=== PATIENT | male | born 1960 | race African-American/Black ===

== ENCOUNTER 2019-11-04 23:46 | Emergency (ER) | payer MEDICAID ==
[~2019-11-04] VITALS: Ht 175.3 cm; Wt 81.8 kg
[2019-11-05] VITALS: BP 149/85
--- NOTE | 2019-11-05 00:03 | PHYS DOC ---
Past History Past Medical History: Asthma Past Surgical History: No Surgical History Smoking: Cigarettes Alcohol Use: Occasionally Drug Use: None General Adult EDM: Chief Complaint: COUGH HPI: HPI: Patient is a 59 year old male who presents via EMS for evaluation of cough and congestion that have been progressing over 3 days. He notes that earlier today he started coughing up blood. When the paramedics arrived his initial O2 sat was 89% on room air. On oxygen it quickly improved to 96%. Vital signs are otherwise stable. Patient does have pain in his chest earlier tonight. He states that his cough is caused him to have decreased ability to sleep. Patient has been checked for COVID but those results are not known. Patient is a smoker. Patient was in mild to early moderate distress on arrival Review of Systems: Review of Systems: Constitutional: Denies fever has chills Eyes: Denies change in visual acuity HENT: has nasal congestion and sore throat Respiratory: has cough and shortness of breath Cardiovascular: has chest pain no edema GI: Denies abdominal pain, nausea, vomiting, bloody stools or diarrhea : Denies dysuria Musculoskeletal: Denies back pain or joint pain Integument: Denies rash Neurologic: Denies headache, focal weakness or sensory changes Endocrine: Denies polyuria or polydipsia Lymphatic: Denies swollen glands Psychiatric: Denies depression or anxiety Heart Score: HEART Score for Chest Pain: HEART Score for Chest Pain Response (Comments) Value History Slighlty/Non-Suspicious 0 ECG Normal 0 Age >45 - < 65 1 Risk Factors 1 or 2 Risk Factors 1 Troponin < Normal Limit 0 Total 2 Risk Factors: Risk Factors: DM, Current or recent (<one month) smoker, HTN, HLP, family history of CAD, obesity. Risk Scores: Score 0 - 3: 2.5% MACE over next 6 weeks - Discharge Home Score 4 - 6: 20.3% MACE over next 6 weeks - Admit for Clinical Observation Score 7 - 10: 72.7% MACE over next 6 weeks - Early Invasive Strategies Current Medications: Current Meds: Current Medications Medications (Trade) Dose Ordered Sig/Agustín Start Time Stop Time Status Last Admin Dose Admin Albuterol Sulfate (Ventolin Hfa Inhaler) 2 puff 1X ONCE 11/05/19 00:30 11/05/19 00:31 Ceftriaxone Sodium 1 gm/ Sodium Chloride 50 ml @ 100 mls/hr 1X ONCE 11/05/19 00:30 11/05/19 00:59 Methylprednisolone Sodium Succinate (SOLU-Medrol 125MG VIAL) 125 mg 1X ONCE 11/05/19 00:30 11/05/19 00:31 Sodium Chloride 1,000 ml @ 1,000 mls/hr Q1H 11/05/19 00:30 11/05/19 01:29 Allergies: Allergies: Allergies Coded Allergies Type Severity Reaction Last Updated Verified Penicillins Allergy Unknown 11/05/19 Yes Physical Exam: PE: Constitutional: Well developed, well nourished, moderate acute distress. [] HENT: Normocephalic, atraumatic, bilateral external ears normal, oropharynx moist, no oral exudates, nose normal. [] Eyes: PERRL, EOMI, conjunctiva normal, no discharge. [] Neck: Normal range of motion, no tenderness, supple, no stridor. [] Cardiovascular:Heart rate regular rhythm, no murmur [] Lungs & Thorax: Bilateral breath sounds diminished especially the bases, rhonchi and wheezing present [] Abdomen: Bowel sounds normal, soft, no tenderness, no masses. [] Skin: Warm, dry, no erythema, no rash. [] Back: No tenderness. [] Extremities: No tenderness, no cyanosis, ROM intact, no edema. [] Neurologic: Alert and oriented, normal motor function, normal sensory function, no focal deficits noted. [] Psychologic: Affect normal, judgement normal, mood normal. [] Current Patient Data: Labs: Laboratory Tests Test 11/05/19 00:35 11/05/19 01:50 White Blood Count 7.1 x10^3/uL Red Blood Count 4.37 x10^6/uL Hemoglobin 13.1 g/dL Hematocrit 38.8 % Mean Corpuscular Volume 89 fL Mean Corpuscular Hemoglobin 30 pg Mean Corpuscular Hemoglobin Concent 34 g/dL Red Cell Distribution Width 13.7 % Platelet Count 221 x10^3/uL Neutrophils (%) (Auto) 64 % Lymphocytes (%) (Auto) 20 % Monocytes (%) (Auto) 15 % Eosinophils (%) (Auto) 1 % Basophils (%) (Auto) 1 % Neutrophils # (Auto) 4.5 x10^3uL Lymphocytes # (Auto) 1.4 x10^3/uL Monocytes # (Auto) 1.1 x10^3/uL Eosinophils # (Auto) 0.1 x10^3/uL Basophils # (Auto) 0.1 x10^3/uL Platelet Estimate Pending Sodium Level 134 mmol/L Potassium Level 3.9 mmol/L Chloride Level 98 mmol/L Carbon Dioxide Level 28 mmol/L Anion Gap 8 Blood Urea Nitrogen 16 mg/dL Creatinine 1.0 mg/dL Estimated GFR (Cockcroft-Gault) 76.5 BUN/Creatinine Ratio 16 Glucose Level 99 mg/dL Lactic Acid Level 1.0 mmol/L Calcium Level 9.1 mg/dL Total Bilirubin 1.2 mg/dL Aspartate Amino Transf (AST/SGOT) 37 U/L Alanine Aminotransferase (ALT/SGPT) 61 U/L Alkaline Phosphatase 78 U/L Troponin I Quantitative < 0.017 ng/mL QV-Dxc-H-Type Natriuretic Peptide 85 pg/mL Total Protein 8.0 g/dL Albumin 3.4 g/dL Albumin/Globulin Ratio 0.7 Urine Collection Type Unknown Urine Color Yellow Urine Clarity Clear Urine pH 6.0 Urine Specific [place] 1.015 Urine Protein Trace Urine Glucose (UA) Neg mg/dL Urine Ketones (Stick) Neg mg/dL Urine Blood Trace Urine Nitrite Neg Urine Bilirubin Neg Urine Urobilinogen Dipstick >=8.0 mg/dL Urine Leukocyte Esterase Neg Urine RBC Occ /HPF Urine WBC Occ /HPF Urine Squamous Epithelial Cells Few /LPF Urine Bacteria 0 /HPF Current Medications Medications (Trade) Dose Ordered Sig/Agustín Route PRN Reason Start Time Stop Time Status Last Admin Dose Admin Sodium Chloride 1,000 ml @ 1,000 mls/hr Q1H IV 11/05/19 00:30 11/05/19 01:29 DC 11/05/19 00:44 Methylprednisolone Sodium Succinate (SOLU-Medrol 125MG VIAL) 125 mg 1X ONCE IV 11/05/19 00:30 11/05/19 00:31 DC 11/05/19 00:44 Albuterol Sulfate (Ventolin Hfa Inhaler) 2 puff 1X ONCE INH 11/05/19 00:30 11/05/19 00:31 DC 11/05/19 00:30 Ceftriaxone Sodium 1 gm/ Sodium Chloride 50 ml @ 100 mls/hr 1X ONCE IV 11/05/19 00:30 11/05/19 00:59 DC 11/05/19 00:44 Sodium Chloride 50 ml @ As Directed STK-MED ONCE .ROUTE 11/05/19 00:39 11/05/19 00:40 DC Ceftriaxone Sodium (Rocephin) 1 gm STK-MED ONCE .ROUTE 11/05/19 00:40 11/05/19 00:40 DC Iohexol (Omnipaque 350 Mg/ml) 100 ml 1X ONCE IV 11/05/19 02:00 11/05/19 02:01 DC 11/05/19 01:50 Info (Do NOT chart on this entry -- for MONITORING) 1 each PRN DAILY PRN MC SEE COMMENTS 11/05/19 01:45 11/07/19 01:44 EKG: EKG: EKG normal sinus rhythm, rate 86, unremarkable EKG, not STEMI read at 12:03 AM [] Radiology/Procedures: Radiology/Procedures: [][address] [address] IMAGING REPORT Signed PATIENT: SINAI BURNS ACCOUNT: [id number] : 1960 LOCATION: ER AGE: 59 SEX: M EXAM STATUS: PRE ER ORD. PHYSICIAN: CHACORTA FIGUEROA DO REASON: coughing up blood, short of air PROCEDURE: PORTABLE CHEST 1V INDICATION: Reason: coughing up blood, short of air / Spl. Instructions: / History: COMPARISON: None. FINDINGS: Single view of chest obtained. Cardiac silhouette is unremarkable. Patchy opacities in the bilateral lungs most severe at the right greater than left lower lung. IMPRESSION: * Bilateral pulmonic opacities which could be infectious in nature with viral, atypical as well as bacterial infection within the differential. A component of aspiration or alveolar hemorrhage is also not excluded. Electronically signed by: Liat Silveira MD (11/05/2019 12:32 AM) [id number] DICTATED AND SIGNED BY: LIAT SILVEIRA MD DATE: 11/05/1931 CC: CHACORTA FIGUEROA DO ~ Impressions: [address] [address] IMAGING REPORT Signed PATIENT: SINAI BURNS ACCOUNT: [id number] : 1960 LOCATION: ER AGE: 59 SEX: M EXAM STATUS: REG ER ORD. PHYSICIAN: CHACORTA FIGUEROA DO REASON: OMNI 350,100ML IV.Pneumonia,coughing up blood,eval for PE.HX COPD PROCEDURE: CT ANGIOGRAPHY CHEST INDICATION: Reason: OMNI 350,100ML IV.Pneumonia,coughing up blood,eval for PE.HX COPD / Spl. Instructions: / History: COMPARISON: None. TECHNIQUE: Axial CT images obtained through the chest. Intravenous contrast utilized. Angiogram 3D images processed per protocol. One or more of the following individualized dose reduction techniques were utilized for this examination: 1. Automated exposure control; 2. Adjustment of the mA and/or kV according to patient size; 3. Use of iterative reconstruction technique. FINDINGS: There are some cystic changes in the lungs which could be from chronic lung disease. Multifocal opacities throughout the bilateral lungs with groundglass as well as nodular and masslike component most confluent in the right lung but seen bilaterally. There are some regions of bronchiectasis. Partially visualized liver is low density which can be seen with fatty infiltration. There are some scattered low-density lesions within the liver which are not well characterized on this nondedicated exam. Mediastinal and hilar lymphadenopathy. For example subcarinal region measuring 25 mm short axis. There is only a small amount contrast within the thoracic aorta therefore the lumen is not well evaluated. There is scattered calcific atherosclerosis without aneurysm. Portion of ascending thoracic aorta is obscured by motion. Angulation of some of the bilateral ribs which could be from prior injury. IMPRESSION: No embolus in the main, right main or left main pulmonary artery but peripheral vessels are obscured by motion and consolidation. Multifocal opacities throughout the bilateral lungs. Could be infectious in nature but follow-up could be obtained to ensure this resolves to exclude any neoplastic cause. Severe lymphadenopathy within the mediastinum and hilum. Could be reactive or neoplastic in nature and follow-up should be obtained to ensure this decreases. Low-density lesions the liver partially seen and not well characterized on this nondedicated examination. Electronically signed by: Liat Silveira MD (11/05/2019 3:17 AM) [id number] DICTATED AND SIGNED BY: LIAT SILVEIRA MD DATE: 11/05/19316 CC: PCP,NO; CHACORTA FIGUEROA DO ~ Course & Med Decision Making: Course & Med Decision Making Pertinent Labs and Imaging studies reviewed. (See chart for details) 0326 stable, CT chest results now known and patient does not have a problem embolism. Complicated pulmonary infiltrates noted. Will check and see if we have a bed available at this facility now. Patient given dose of IV Rocephin and Zithromax to cover [facility] pneumonia. Patient is a COVID PUI at this time 0335 I called and was able to get an ICU bed set up at this facility. However patient just changed his mind and wished to leave AGAINST MEDICAL ADVICE. He states he just wants to go back to where he is staying. I advised him that leaving at this time could result in or disability. Patient has an obvious complicated pneumonia. I am concerned that he might have COVID but those results were not yet known. Patient was given dose of IV Rocephin and Zithromax here in the ER. I have provided prescription for Levaquin but this is not ideal as patient has a potentially dangerous life-threatening medical condition. Advised him that his condition could be contagious. Detailed COVID follow-up instructions given as well. Patient was advised that should his change his mind or his symptoms worse or persist he could come back to the hospital Dragon Disclaimer: Karen Disclaimer: This electronic medical record was generated, in whole or in part, using a voice recognition dictation system. Departure Departure: Impression: Primary Impression: Community acquired pneumonia Qualified Codes: J18.9 - Pneumonia, unspecified organism Additional Impressions: Hypoxia Hemoptysis Disposition: AGAINST MEDICAL ADVICE Condition: STABLE Referrals: BARRIE ELMORE MD Patient Instructions: Hypoxemia, Pneumomediastinum Additional Instructions: You have been tested for or diagnosed with COVID-19. It is an infection caused by a new type of coronavirus. COVID-19 will cause cold-like or mild flu symptoms in most. It can cause more severe symptoms like problems breathing in some. There is no treatment for COVID-19. The body will clear the infection over time. Self-care will help to ease discomfort. Steps to Take: Self-Care Rest as needed. Healthy habits may help you feel better. Steps include: Choose healthy foods including fruits and vegetables. Drink water throughout the day. Get plenty of sleep each night. If you smoke, try to quit. It may ease breathing. Avoid alcohol. Keep Others Healthy The virus can spread to others. Droplets are released every time you sneeze or cough. The droplets can get into the mouth, nose, or eyes of people near you and lead to infection. To lower the chances of spreading COVID-19 to others: Stay at home until your doctor has said it is safe to leave. If you tested positive this will mean staying isolated until both of the following are true: At least 7 days have passed since the start of illness. You are free of fever for at least 72 hours without the use of medicine. During this time: - Avoid public areas, events, or transportation. Do not return to work or school until your doctor has said it is safe to do so. - Call ahead if you need to go to a medical center. Let them know you may have COVID-19. It will help them guide you where to go. They may also ask you to wear a facemask when you come to the office. - If you call for emergency medical services, let them know you may have COVID-19. While at home: - Try to avoid close contact with others. Stay about 6 feet away. - If possible, spend most of your time in a separate room from others. - Use a face mask if you will be in close contact with others such as sharing a room or vehicle. - Have someone wipe down common surfaces in the home. Use household layout artist every day on areas like doorknobs, counters, or sinks. - Cough or sneeze into a tissue. Throw the tissue away right after use. If a tissue is not available, cough or sneeze into your elbow. - Wash your hands often. Wash them after sneezing or coughing. Use soap and water and wash for at least 20 seconds. Alcohol based hand still cleaner can be used if soap and water is not available. - Do not prepare food for others. Avoid sharing personal items like forks, spoons, or toothbrushes. - Avoid close contact with pets while you are sick. There is no evidence of the virus passing to pets. This is a safety step until more is known about this virus. Isolation can be frustrating. Social interaction can help. Keep in touch with friends and family through phone and tech options. You can still interact with others in your home, just keep a safe distance of about 6 feet. Follow-up: Your doctors office will check in with you to see if there are any changes in your health. You may be asked to keep track of symptoms to share with them. They will also let you know when you are clear to be in public again. Problems to Look Out For: Contact your doctor if your recovery is not going as you expect. Get emergency care if you have problems such as: - Trouble breathing - Nonstop chest pain or pressure - Changes in awareness, confusion, or problems waking - Lips or face have bluish color - Worsening of symptoms If you think you have an emergency, call for emergency medical services right away. As taken from [employer] [facility] Levofloxacin (LEVOFLOXACIN) 750 Mg Tablet 1 TAB PO DAILY for pneumonia, #10 TAB Prov: CHACORTA FIGUEROA DO 11/05/19 Justification of Admission: Justification of Admission: Justification of Admission Dx: Yes Comminuty Aquired Pneumonia: Hypoxemia COVID-19 Assessment COVID-19 Patient Risks: Age 65 or older: No Sign of co-morbidity: Yes Exp to person + for COVID: No Exp to PUI: No Travel from affected area: No Lower respiratory symptoms: Yes Fever: Yes Other: No PPE Use: Full PPE with N95 mask or PAPR: Yes CHACORTA FIGUEROA DO Nov 05, 2019 00:03
[2019-11-05] MEDS ORDERED: ALBUTEROL SULFATE 8GM INHALER. INH ONE (00:30)
[2019-11-05] MEDS ORDERED: methylPREDNISolone SOD SUCC PF 125 MG/2 ML VIAL. IV ONE (00:30)
[2019-11-05] MEDS ORDERED: IV NORMAL SALINE 1,000ML 1,000 ML IV SCH (00:30)
--- NOTE | 2019-11-05 00:35 | RAD ---
INDICATION: Reason: coughing up blood, short of air / Spl. Instructions: / History: COMPARISON: None. FINDINGS: Single view of chest obtained. Cardiac silhouette is unremarkable. Patchy opacities in the bilateral lungs most severe at the right greater than left lower lung. IMPRESSION: * Bilateral pulmonic opacities which could be infectious in nature with viral, atypical as well as bacterial infection within the differential. A component of aspiration or alveolar hemorrhage is also not excluded. Electronically signed by: Ady Hampton MD (11/05/2019 12:32 AM) [id number]
[2019-11-05] MEDS ORDERED: IV NORMAL SALINE 50ML 50 ML ONE (00:39)
[2019-11-05] MEDS ORDERED: cefTRIAXone SODIUM 1 GM VIAL ONE (00:40)
[2019-11-05 01:00] LABS: BASO # 0.1 x10^3/uL (0.0-0.2); BASO % 1 % (0-3); EOS # 0.1 x10^3/uL (0.0-0.7); EOS % 1 % (0-3); HEMATOCRIT 38.8 % (39.0-53.0); HEMOGLOBIN 13.1 g/dL (13.0-17.5); LYMPH # 1.4 x10^3/uL (1.0-4.8); LYMPH % 20 % (24-48); MEAN CORPUSCULAR HEMOGLOBIN 30 pg (25-35); MEAN CORPUSCULAR HGB CONC 34 g/dL (31-37); MEAN CORPUSCULAR VOLUME 89 fL (79-100); MONO # 1.1 x10^3/uL (0.0-1.1); MONO % 15 % (0-9); NEUT # 4.5 x10^3uL (1.8-7.7); NEUT % 64 % (31-73); PLATELET COUNT 221 x10^3/uL (140-400); RED BLOOD COUNT 4.37 x10^6/uL (4.30-5.70); RED CELL DISTRIBUTION WIDTH 13.7 % (11.5-14.5); WHITE BLOOD COUNT 7.1 x10^3/uL (4.0-11.0)
[2019-11-05 01:06] LABS: CALCIUM 9.1 mg/dL (8.5-10.1); GFR 76.5; POTASSIUM 3.9 mmol/L (3.5-5.1)
[2019-11-05 01:20] LABS: ALBUMIN 3.4 g/dL (3.4-5.0); ALBUMIN/GLOBULIN RATIO 0.7 (1.0-1.7); TOTAL BILIRUBIN 1.2 mg/dL (0.2-1.0)
--- NOTE | 2019-11-05 01:41 | EKG ---
[address] [address] Test Date: 2019-11-04 Test Time: 23:58:02 Pat Name: SINAI BURNS Department: Room: Gender: M [employer] T[employer]: : 1960 Requested By: CHACORTA FIGUEROA Order Number: [id number] Reading MD: Aram Reyes Measurements Intervals [place] Rate: 86 P: 54 TX: 144 QRS: 80 QRSD: 78 T: 44 QT: 324 QTc: 390 Interpretive Statements SINUS RHYTHM LEFT ATRIAL ABNORMALITY ABNORMAL ECG RI6.02 No previous ECG available for comparison Electronically Signed On 11-09-2019 12:49:21 CDT by Aram Reyes
[2019-11-05] MEDS ORDERED: CONTRAST GIVEN. MC PRN (01:45)
[2019-11-05] MEDS ORDERED: IOHEXOL 350 MG/ML 100 ML VIAL. IV ONE (02:00)
[2019-11-05 02:13] LABS: BILIRUBIN,URINE NEG (NEG); CLARITY,URINE CLEAR; COLOR,URINE YELLOW; GLUCOSE,URINE NEG (NEG)
[2019-11-05 02:14] LABS: BACTERIA,URINE 0 /HPF (0-FEW); NITRITE,URINE NEG (NEG); RBC,URINE OCC /HPF (0-2); SQUAMOUS EPITHELIAL CELL,UR FEW /LPF; UROBILINOGEN,URINE >=8.0 mg/dL (0.2 mg/dL); WBC,URINE OCC /HPF (0-4)
[2019-11-05 02:35] LABS: % BANDS 5 % (0-9); % EOS 1 % (0-5); % LYMPHS 23 % (24-48); % MONOS 12 % (0-10); % SEGS 59 % (35-66)
[2019-11-05 02:36] LABS: PLT ESTIMATE ADEQUATE (ADEQUATE)
[2019-11-05] MEDS ORDERED: AZITHROMYCIN 500 MG VIAL. IV ONE (02:58)
[2019-11-05] MEDS ORDERED: IV NORMAL SALINE 250ML 250 ML ONE (02:58)
[2019-11-05] MEDS ORDERED: AZITHROMYCIN 500 MG in IV NORMAL SALINE 250ML 250 ML IV ONE (03:00)
--- NOTE | 2019-11-05 03:20 | RAD ---
INDICATION: Reason: OMNI 350,100ML IV.Pneumonia,coughing up blood,eval for PE.HX COPD / Spl. Instructions: / History: COMPARISON: None. TECHNIQUE: Axial CT images obtained through the chest. Intravenous contrast utilized. Angiogram 3D images processed per protocol. One or more of the following individualized dose reduction techniques were utilized for this examination: 1. Automated exposure control; 2. Adjustment of the mA and/or kV according to patient size; 3. Use of iterative reconstruction technique. FINDINGS: There are some cystic changes in the lungs which could be from chronic lung disease. Multifocal opacities throughout the bilateral lungs with groundglass as well as nodular and masslike component most confluent in the right lung but seen bilaterally. There are some regions of bronchiectasis. Partially visualized liver is low density which can be seen with fatty infiltration. There are some scattered low-density lesions within the liver which are not well characterized on this nondedicated exam. Mediastinal and hilar lymphadenopathy. For example subcarinal region measuring 25 mm short axis. There is only a small amount contrast within the thoracic aorta therefore the lumen is not well evaluated. There is scattered calcific atherosclerosis without aneurysm. Portion of ascending thoracic aorta is obscured by motion. Angulation of some of the bilateral ribs which could be from prior injury. IMPRESSION: No embolus in the main, right main or left main pulmonary artery but peripheral vessels are obscured by motion and consolidation. Multifocal opacities throughout the bilateral lungs. Could be infectious in nature but follow-up could be obtained to ensure this resolves to exclude any neoplastic cause. Severe lymphadenopathy within the mediastinum and hilum. Could be reactive or neoplastic in nature and follow-up should be obtained to ensure this decreases. Low-density lesions the liver partially seen and not well characterized on this nondedicated examination. Electronically signed by: Ady Hampton MD (11/05/2019 3:17 AM) [id number]
[2019-11-05] MEDS ORDERED: LEVO750T5 PO (03:41)
--- NOTE | 2019-11-08 08:58 | NUR ---
IP: notified patient of COVID result, discussed precautions, there were no questions at this time.
== END 2019-11-05 03:52 | disposition left against medical advice (07) ==
LOC: ER 23:46
DX: U07.1 COVID-19 (principal); J12.89 Other viral pneumonia; R09.02 Hypoxemia; R04.2 Hemoptysis; J45.909 Unspecified asthma, uncomplicated; F17.210 Nicotine dependence, cigarettes, uncomplicated; Z88.0 Allergy status to penicillin
CPT/HCPCS: 36415; 71045; 71275; 80053; 81001; 83605; 83880; 84484; 85007; 85025; 87040; 93005; 94640; 96361; 96365; 96375; 99285; C9803; J0456; J0696; J2930; J7030; J7050; J7613; Q9967; U0003; 94664